=== PATIENT | male | born 1990 | race African-American/Black ===

== ENCOUNTER 2017-02-01 17:46 | Emergency (ER) | payer BC, OTHER ==
[~2017-02-01] VITALS: Ht 177.8 cm; Wt 73.9 kg
[2017-02-01 18:06] VITALS: BP 140/90
== END 2017-02-01 19:00 | disposition home or self-care (01) ==
LOC: ER 17:48
DX: R07.89 Other chest pain (principal)
CPT/HCPCS: A4606; Z7610

== ENCOUNTER 2017-02-05 03:58 | Emergency (ER) | payer OTHER ==
[~2017-02-05] VITALS: Ht 167.6 cm; Wt 76.2 kg
--- NOTE | 2017-02-05 04:17 | NUR ---
PT AMBUALOTRY TO ER BED 9 PT STATES "I HAVENT URINATED SINCE 2200 AND MY LT SIDE HURTS" PT AOX4 RR EVEN AND UNLABORED. NO SOB NOTED. NAD NOTED. NO NVD AT THIS TIME. PT NOT DIAPHORETIC. PT GOWNED AND PLACED ON MONTIOR WAITING FOR MD ANTHONY. PER BLADDER SCANNER, PT IS NOT RETAINING ANY URINE. INFORMED DR. MANUEL
[2017-02-05] MEDS ORDERED: HYDROMORPHONE 1 MG/1 ML DISP.SYRIN ONE ×2 (04:35→05:46)
[2017-02-05] MEDS ORDERED: ONDANSETRON HCL/PF 4 MG/2 ML VIAL ONE (04:36)
[2017-02-05] MEDS ORDERED: IV SET PRIMARY 1 EA INFUS.SET MC ONE ×2 (04:36→05:46)
[2017-02-05] MEDS ORDERED: IV NS 0.9% 1,000 ML ONE ×2 (04:36→05:46)
--- NOTE | 2017-02-05 04:40 | NUR ---
IV STARTED ON RIGHT AC 18G, LABS DRAWN. CALLED LAB FOR [facility] CHOP[facility].
--- NOTE | 2017-02-05 04:51 | NUR ---
PT TO CT.
[2017-02-05] MEDS ORDERED: ONDANSETRON HCL/PF 4 MG/2 ML VIAL IVP ONE (05:00)
[2017-02-05] MEDS ORDERED: IV NS 0.9% 1,000 ML BAG IV ONE ×2 (05:00→06:00)
[2017-02-05] MEDS ORDERED: HYDROMORPHONE INJ 2 MG/ML DISP.SYRIN IV ONE (05:00)
[2017-02-05 05:10] LABS: BASOPHILS % (AUTO) 0.3 % (0.0-2.0); EOSINOPHILS # (AUTO) 0.1 /CMM (0.0-0.7); HEMATOCRIT 45 % (39-51); HEMOGLOBIN 15.2 g/dL (13.5-17.5); LYMPHOCYTES # (AUTO) 3.3 /CMM (0.8-4.8); LYMPHOCYTES % (AUTO) 37.9 % (20.0-44.0); MEAN CORPUSCULAR HEMOGLOBIN 31 PG (26.0-33.0); MEAN CORPUSCULAR HGB CONC 34 g/dl (31.0-36.0); MEAN CORPUSCULAR VOLUME 91 fL (80-96); MONOCYTES # (AUTO) 0.6 /CMM (0.1-1.30); NEUTROPHILS # (AUTO) 4.7 /CMM (1.8-8.9); NEUTROPHILS % (AUTO) 53.8 % (43.0-81.0); PLATELET COUNT (AUTO) 267 /CMM (150-450); RDW COEFFICIENT OF VARIATION 12.7 (11.5-15.0); RED BLOOD CELL COUNT(AUTO) 4.91 MIL/uL (4.5-6.0); WHITE BLOOD COUNT (AUTO) 8.8 K/uL (4.3-11.0)
[2017-02-05 05:16] LABS: CALCIUM, SERUM 9.9 mg/dL (8.5-10.1); CREATININE 1.2 mg/dL (0.6-1.3)
[2017-02-05 05:25] LABS: ALBUMIN 4.6 g/dL (3.4-5.0); BILIRUBIN,DIRECT 0.1 mg/dL (0.0-0.2); BILIRUBIN,TOTAL 0.9 mg/dL (0.2-1.0); TOTAL PROTEIN, SERUM 8.4 g/dL (6.4-8.2)
[2017-02-05 05:31] LABS: INR 0.96 (0.87-1.13); PROTHROMBIN TIME 10.3 SECS (9.5-12.7)
--- NOTE | 2017-02-05 05:45 | NUR ---
VERBAL ORDERS PER DR. MANUEL TO GIVE PT IV DILAUDID 1MG ONETIME NOW
[2017-02-05] MEDS ORDERED: KETOROLAC TROMETHAMINE 15 MG/ML VIAL ONE (05:53)
[2017-02-05] MEDS ORDERED: KETOROLAC TROMETHAMINE INJ 30 MG/ML VIAL IV ONE (06:00)
[2017-02-05] MEDS ORDERED: HYDROMORPHONE 1 MG/1 ML DISP.SYRIN IV ONE (06:00)
[2017-02-05 06:54] LABS: APPEARANCE,URINE SL CLOUDY (CLEAR); BILIRUBIN,URINE NEGATIVE (NEGATIVE); BLOOD, URINE 3+ Ery/uL (NEGATIVE); COLOR,URINE YELLOW (YELLOW); KETONES,URINE 1+ (NEGATIVE); LEUKOCYTE ESTERASE ,URINE NEGATIVE (NEGATIVE); NITRITE, URINE NEGATIVE (NEGATIVE); PROTEIN,URINE NEGATIVE (NEGATIVE); UGLUCOSE NEGATIVE (NEGATIVE); UROBILINOGEN,URINE 0.2 EU/dL (0.2)
[2017-02-05 07:01] LABS: ADD URINE CULTURE NO; BACTERIA,URINE None seen /HPF (None Seen); RBC,URINE 21-50 /HPF (0-2); SQUAMOUS EPITHELIAL CELL,UR 0-2 /HPF (None Seen); WBC,URINE 0-2 /HPF (0-3)
--- NOTE | 2017-02-05 07:24 | NUR ---
IV removed. Catheter intact and site benign. Pressure and 4x4 applied to site. No bleeding noted. Patient discharged to home in stable condition. Written and verbal after care instructions given. Patient verbalizes understanding of instruction. ambulatory with a steady gait. instructed pt not to drive. pt verbalize understanding.
[2017-02-05 07:27] VITALS: BP 120/64
== END 2017-02-05 07:29 | disposition home or self-care (01) ==
LOC: ER 04:00
DX: N23 Unspecified renal colic (principal)
CPT/HCPCS: 36415; 80048-TC; 80076-TC; 81000-TC; 83690-TC; 85025-TC; 85730-TC; A4606; J1170; J1885; J2405; J7030; Z7610

== ENCOUNTER 2017-06-22 21:27 | Emergency (ER) | payer OTHER ==
[~2017-06-22] VITALS: Ht 177.8 cm; Wt 74.8 kg
--- NOTE | 2017-06-22 21:45 | NUR ---
BB SELF; BLEEDING FROM COLON, ALREADY ON [place] FOR COLITIS, NEEDS MED REFILL. PT AOX4 RR EVEN AND UNLABORED. NO SOB NOTED. NAD NOTED. NO NVD AT THIS TIME. PT WAITING FOR MD ANTHONY.
--- NOTE | 2017-06-22 21:50 | NUR ---
MARLEN ILU AT BEDSIDE FOR EVAL.
--- NOTE | 2017-06-22 22:18 | NUR ---
LAB AT BEDSIDE FOR BLOOD DRAW.
[2017-06-22 22:45] LABS: BASOPHILS % (AUTO) 0.6 % (0.0-2.0); EOSINOPHILS # (AUTO) 0.1 /CMM (0.0-0.7); EOSINOPHILS % (AUTO) 1.8 % (0.0-6.0); HEMATOCRIT 46 % (39-51); LYMPHOCYTES # (AUTO) 3.4 /CMM (0.8-4.8); LYMPHOCYTES % (AUTO) 50.6 % (20.0-44.0); MEAN CORPUSCULAR HEMOGLOBIN 30 PG (26.0-33.0); MEAN CORPUSCULAR HGB CONC 33 g/dl (31.0-36.0); MEAN CORPUSCULAR VOLUME 92 fL (80-96); MONOCYTES # (AUTO) 0.6 /CMM (0.1-1.30); MONOCYTES % (AUTO) 8.7 % (2.0-12.0); NEUTROPHILS # (AUTO) 2.5 /CMM (1.8-8.9); NEUTROPHILS % (AUTO) 38.3 % (43.0-81.0); PLATELET COUNT (AUTO) 272 /CMM (150-450); RDW COEFFICIENT OF VARIATION 12.5 (11.5-15.0); RED BLOOD CELL COUNT(AUTO) 4.97 MIL/uL (4.5-6.0); WHITE BLOOD COUNT (AUTO) 6.6 K/uL (4.3-11.0)
--- NOTE | 2017-06-22 22:51 | NUR ---
MARLEN LIU AT BEDSIDE SPEAKING TO PT REGARDING RESULTS.
[2017-06-22 22:53] VITALS: BP 128/68
== END 2017-06-22 22:58 | disposition home or self-care (01) ==
LOC: ER 21:33
DX: K51.80 Other ulcerative colitis without complications (principal); K62.5 Hemorrhage of anus and rectum; Z87.442 Personal history of urinary calculi
CPT/HCPCS: 36415; 85025; 99283; A4606; Z7610